=== PATIENT | female | born 1990 | race Hispanic/Latino ===

== ENCOUNTER 2024-08-07 10:17 | Day surgery (SDC) | payer BC, OTHER ==
[~2024-08-07] VITALS: Ht 160 cm; Wt 58.5 kg
[2024-08-07] VITALS (18 sets, daily range): BP systolic 103–117; BP diastolic 50–76; PULSE 64–92; RESP 15–17; TEMP 96.6–97.9
[2024-08-07] MEDS: 0.9%NACL 1000ML 1,000 ML IV ONE (11:20)
[2024-08-07] MEDS ORDERED: ACET-66 PO (11:31)
[2024-08-07] MEDS ORDERED: LISD60CA PO (11:31)
[2024-08-07] MEDS ORDERED: LORA0.5T83 PO (11:31)
[2024-08-07] MEDS ORDERED: proPOFol 10 MG/ML 20ML VIAL IV ONE ×2 (12:29→13:59)
[2024-08-07] MEDS ORDERED: dexaMETHasone SOD PHOSPHATE 10MG/ML 1ML VIAL ONE (12:29)
[2024-08-07] MEDS ORDERED: ondanSETRON 4MG INJ ONE ×2 (12:29→14:00)
[2024-08-07] MEDS ORDERED: LIDOCAINE PF 100MG/5ML (2%) SYRINGE 5ML ONE (12:29)
[2024-08-07] MEDS ORDERED: FENTanyl CITRate PF 50 MCG/1 ML 2ML VIAL ONE ×2 (13:59→14:00)
[2024-08-07] MEDS ORDERED: SUCCINYLCHOLINE CHLORIDE 20 MG/ML 10 ML VIAL ONE (14:03)
[2024-08-07] MEDS ORDERED: rocuRONium bROMide 10MG/1ML 5ML VL ONE (14:03)
[2024-08-07] MEDS: MEPERIDINE-PF 25 MG/ML SYG ONE (16:49)
== END 2024-08-07 18:00 | disposition home or self-care (01) ==
LOC: ENDO 10:17 → DAH 10:17 → ENDO 18:00
PROVIDERS: ATTEND Surgery
DX: E46 Unspecified protein-calorie malnutrition (principal); R62.7 Adult failure to thrive; K30 Functional dyspepsia; E86.0 Dehydration; K91.1 Postgastric surgery syndromes; R11.0 Nausea; Z98.84 Bariatric surgery status; F41.9 Anxiety disorder, unspecified; Z90.49 Acquired absence of other specified parts of digestive tract; Z79.899 Other long term (current) drug therapy
CPT/HCPCS: 81025; 43270; C9901; J3010 ×2; J1100; J0330; J7030; J3490; J2003; J2704 ×2; J2405 ×2; J2175; A4215 ×2; A4223; A4657 ×2; A7002; A4222; A4221; A4663; A4606